=== PATIENT | male | born 1975 | race Hispanic/Latino ===

== ENCOUNTER 2017-01-31 10:46 | Emergency (ER) | payer SELFPAY | END 2017-01-31 11:21 | disposition home or self-care (01) | LOC: NAV ERS 10:46 | DX: L25.9 Unspecified contact dermatitis, unspecified cause (principal); E10.9 Type 1 diabetes mellitus without complications; Z79.84 Long term (current) use of oral hypoglycemic drugs | CPT/HCPCS: 99282 ==